=== PATIENT | female | born 1950 | race Two or more races ===

== ENCOUNTER 2019-03-01 01:55 | Emergency (ER) | payer MEDICARE, BC ==
[~2019-03-01] VITALS: Ht 157.5 cm; Wt 71.7 kg
[2019-03-01 02:39] LABS: Basophils # (auto) 0.1 uL; Basophils % (auto) 1.2 % (0.0-2.0); Eosinophils # (auto) 0.1 uL; Eosinophils % (auto) 1.3 % (0.0-7.0); Hematocrit 41.1 % (36.0-46.0); Hemoglobin 14.2 g/dL (12.2-16.2); Lymphocytes # (auto) 1.4 uL; Lymphocytes % (auto) 31.7 % (10.0-50.0); Mean Corpuscular Hemoglobin 30.1 pg (28.0-32.0); Mean Corpuscular Hgb Conc. 34.6 g/dL (32.0-36.0); Mean Corpuscular Volume 87.2 fL (80.0-100.0); Monocytes # (auto) 0.6 uL; Monocytes % (auto) 13.3 % (0.0-12.0); Neutrophils # (auto) 2.3 uL; Neutrophils % (auto) 52.5 % (37.0-80.0); Platelet Count (auto) 190 10^3/uL (140-450); Red Blood Cells 4.71 10^6/uL (4.0-5.20); Red Cell Distribution Width 13.3 % (11.8-14.3); White Blood Cell 4.4 10^3/uL (4.4-10.8)
[2019-03-01 03:03] LABS: Albumin 3.6 g/dL (3.4-5.0); Calcium 9.2 mg/dL (8.5-10.1); Potassium 3.7 mmol/L (3.5-5.1)
[2019-03-01 03:06] LABS: Bilirubin, Total 1.1 mg/dL (0.2-1.0); Total Protein 7.1 g/dL (6.4-8.2)
[2019-03-01 08:41] LABS: Urine Bacteria FEW /hpf (None Seen); Urine Blood Negative /uL (Negative); Urine Mucus FEW (None Seen); Urine Specific Gravity 1.018 (1.001-1.035); Urine WBC 1 /hpf (0 - 5)
[2019-03-01 09:34] VITALS: BP 133/81
== END 2019-03-01 09:39 | disposition home or self-care (01) ==
LOC: EDBD 02:00 → ER 02:00
DX: R42 Dizziness and giddiness (principal); I10 Essential (primary) hypertension; Z88.8 Allergy status to other drugs, medicaments and biological substances; Z88.2 Allergy status to sulfonamides
CPT/HCPCS: 36415; 80053; 81001; 85025; 93005

== ENCOUNTER → 2020-10-12 | Outpatient (CLI) | payer MEDICARE, BC | END | disposition home or self-care (01) | LOC: XYW 11:15 | DX: S83.411A Sprain of medial collateral ligament of right knee, initial encounter (principal); M71.21 Synovial cyst of popliteal space [Baker], right knee; M25.561 Pain in right knee; X58.XXXA Exposure to other specified factors, initial encounter; Y93.89 Activity, other specified; Y92.89 Other specified places as the place of occurrence of the external cause; Y99.8 Other external cause status | CPT/HCPCS: 73721 ==

== ENCOUNTER → 2020-12-05 | Outpatient (CLI) | payer MEDICARE, BC | END | disposition home or self-care (01) | LOC: LAB 11:24 | PROVIDERS: ATTEND Nurse Practitioner Family | DX: N39.0 Urinary tract infection, site not specified (principal) | CPT/HCPCS: 87086 ==

== ENCOUNTER → 2021-01-15 | Outpatient (CLI) | payer MEDICARE, BC | END | disposition home or self-care (01) | LOC: LAB 09:08 | PROVIDERS: ATTEND Internal Medicine Pulmonary Disease | DX: D86.9 Sarcoidosis, unspecified (principal); R91.1 Solitary pulmonary nodule | CPT/HCPCS: 36415; 82565; 84520 ==

== ENCOUNTER 2022-01-11 07:49 | Emergency (ER) | payer MEDICARE, BC ==
[~2022-01-11] VITALS: Ht 167.6 cm; Wt 59.0 kg
[2022-01-11 07:57] VITALS: BP 172/73
[2022-01-11 08:42] LABS: Basophils # (auto) 0.1 10 ^3/uL (0-0.2); Basophils % (auto) 0.9 % (0.0-2.0); Eosinophils # (auto) 0 10 ^3/uL (0-0.8); Eosinophils % (auto) 0.7 % (0.0-7.0); Hematocrit 42.9 % (36.0-46.0); Hemoglobin 14.2 g/dL (12.2-16.2); Lymphocytes # (auto) 1.4 10 ^3/uL (0.4-5.4); Lymphocytes % (auto) 20.3 % (10.0-50.0); Mean Corpuscular Hemoglobin 28.8 pg (28.0-32.0); Mean Corpuscular Hgb Conc. 33.1 g/dL (32.0-36.0); Monocytes # (auto) 0.7 10 ^3/uL (0-1.3); Monocytes % (auto) 9.7 % (0.0-12.0); Neutrophils # (auto) 4.6 10 ^3/uL (1.6-8.6); Neutrophils % (auto) 68.4 % (37.0-80.0); Nucleated Red Blood Cells % 0.1 %; Red Blood Cells 4.92 10^6/uL (4.0-5.20); Red Cell Distribution Width 13.3 % (11.8-14.3); White Blood Cell 6.7 10^3/uL (4.4-10.8)
[2022-01-11 09:01] LABS: Albumin 3.8 g/dL (3.4-5.0); Calcium 9.7 mg/dL (8.5-10.1); Potassium 3.6 mmol/L (3.5-5.1)
[2022-01-11 09:05] LABS: BUN/Creatinine Ratio 28.1; Bilirubin, Total 1.1 mg/dL (0.2-1.0); Total Protein 8.1 g/dL (6.4-8.2)
[2022-01-11] MEDS ORDERED: IOHEXOL 300 MG/ML 100ML BOTTLE IJ ONE (09:30)
[2022-01-11] MEDS ORDERED: cloNIDine HCL 0.1 MG TAB PO ONE (09:30)
[2022-01-11 12:26] LABS: Urine Bacteria MANY /hpf (None Seen); Urine Blood Negative /uL (Negative); Urine Hyaline Cast MOD /lpf (0 - 2); Urine Mucus FEW (None Seen); Urine Specific Gravity 1.018 (1.001-1.035); Urine WBC 8 /hpf (0 - 5)
== END 2022-01-11 13:59 | disposition left against medical advice (07) ==
LOC: ER 07:49
DX: R42 Dizziness and giddiness (principal); I10 Essential (primary) hypertension; E03.9 Hypothyroidism, unspecified; Z90.710 Acquired absence of both cervix and uterus; Z90.89 Acquired absence of other organs
CPT/HCPCS: 36415; 70450; 71045; 80053; 81001; 83735; 83880; 84443; 84484; 85025; 93005

== ENCOUNTER → 2022-01-20 | Outpatient (CLI) | payer MEDICARE, BC | END | disposition home or self-care (01) | LOC: LAB 11:43 | PROVIDERS: ATTEND Nurse Practitioner Family | DX: N39.0 Urinary tract infection, site not specified (principal) | CPT/HCPCS: 87086; 87088; 87186 ==

== ENCOUNTER 2022-02-20 15:51 | Emergency (ER) | payer MEDICARE, BC ==
[~2022-02-20] VITALS: Ht 162.6 cm; Wt 63.0 kg
[2022-02-20 18:24] LABS: Basophils # (auto) 0 10 ^3/uL (0-0.2); Basophils % (auto) 0.7 % (0.0-2.0); Eosinophils # (auto) 0 10 ^3/uL (0-0.8); Eosinophils % (auto) 0.8 % (0.0-7.0); Hematocrit 43.5 % (36.0-46.0); Mean Corpuscular Hemoglobin 28.3 pg (28.0-32.0); Mean Corpuscular Hgb Conc. 32.3 g/dL (32.0-36.0); Mean Corpuscular Volume 87.5 fL (80.0-100.0); Monocytes # (auto) 0.5 10 ^3/uL (0-1.3); Monocytes % (auto) 9.4 % (0.0-12.0); Neutrophils # (auto) 4.2 10 ^3/uL (1.6-8.6); Neutrophils % (auto) 72.1 % (37.0-80.0); Red Blood Cells 4.96 10^6/uL (4.0-5.20); White Blood Cell 5.9 10^3/uL (4.4-10.8)
[2022-02-20 18:36] LABS: Albumin 3.7 g/dL (3.4-5.0); BUN/Creatinine Ratio 31.6; Calcium 9.5 mg/dL (8.5-10.1); Potassium 3.7 mmol/L (3.5-5.1)
[2022-02-20 18:39] LABS: Bilirubin, Total 1.4 mg/dL (0.2-1.0); Total Protein 7.5 g/dL (6.4-8.2)
[2022-02-20] MEDS ORDERED: MECLIZINE HCL 25 MG TAB PO ONE (18:45)
[2022-02-20 19:35] VITALS: BP 160/78
== END 2022-02-20 19:40 | disposition home or self-care (01) ==
LOC: EDBD 15:51 → ER 15:51
DX: R42 Dizziness and giddiness (principal); I10 Essential (primary) hypertension; E03.9 Hypothyroidism, unspecified; Z90.710 Acquired absence of both cervix and uterus; Z90.89 Acquired absence of other organs; Z88.6 Allergy status to analgesic agent; Z88.2 Allergy status to sulfonamides
CPT/HCPCS: 36415; 80053; 85025; 93005

== ENCOUNTER → 2022-03-11 | Outpatient (CLI) | payer MEDICARE, BC ==
[2022-03-11 12:24] LABS: Basophils # (auto) 0 10 ^3/uL (0-0.2); Basophils % (auto) 0.7 % (0.0-2.0); Eosinophils # (auto) 0.1 10 ^3/uL (0-0.8); Eosinophils % (auto) 1.1 % (0.0-7.0); Hematocrit 44.6 % (36.0-46.0); Hemoglobin 14.8 g/dL (12.2-16.2); Lymphocytes # (auto) 1.2 10 ^3/uL (0.4-5.4); Lymphocytes % (auto) 19.5 % (10.0-50.0); Mean Corpuscular Hemoglobin 29.1 pg (28.0-32.0); Mean Corpuscular Hgb Conc. 33.1 g/dL (32.0-36.0); Monocytes # (auto) 0.6 10 ^3/uL (0-1.3); Monocytes % (auto) 9.1 % (0.0-12.0); Neutrophils # (auto) 4.2 10 ^3/uL (1.6-8.6); Neutrophils % (auto) 69.6 % (37.0-80.0); Nucleated Red Blood Cells % 0.1 %; Red Blood Cells 5.07 10^6/uL (4.0-5.20); Red Cell Distribution Width 13.9 % (11.8-14.3)
[2022-03-11 12:46] LABS: Albumin 3.8 g/dL (3.4-5.0); Potassium 3.9 mmol/L (3.5-5.1)
[2022-03-11 12:53] LABS: BUN/Creatinine Ratio 27.5; Bilirubin, Total 1.2 mg/dL (0.2-1.0); Total Protein 7.6 g/dL (6.4-8.2)
== END | disposition home or self-care (01) ==
LOC: LAB 11:44
PROVIDERS: ATTEND Nurse Practitioner Family
DX: I10 Essential (primary) hypertension (principal); E03.9 Hypothyroidism, unspecified; F41.9 Anxiety disorder, unspecified; Z00.00 Encounter for general adult medical examination without abnormal findings
CPT/HCPCS: 36415; 80053; 80061; 84443; 85025

== ENCOUNTER → 2023-10-21 | Outpatient (CLI) | payer MEDICARE, BC ==
[2023-10-21 14:35] LABS: Basophils # (auto) 0.1 10 ^3/uL (0-0.2); Basophils % (auto) 0.8 % (0.0-2.0); Eosinophils # (auto) 0 10 ^3/uL (0-0.8); Eosinophils % (auto) 0.6 % (0.0-7.0); Hematocrit 44.7 % (36.0-46.0); Hemoglobin 14.9 g/dL (12.2-16.2); Lymphocytes # (auto) 1.8 10 ^3/uL (0.4-5.4); Lymphocytes % (auto) 25.5 % (10.0-50.0); Mean Corpuscular Hemoglobin 29.9 pg (28.0-32.0); Mean Corpuscular Hgb Conc. 33.4 g/dL (32.0-36.0); Mean Corpuscular Volume 89.7 fL (80.0-100.0); Monocytes # (auto) 0.7 10 ^3/uL (0-1.3); Monocytes % (auto) 9.6 % (0.0-12.0); Neutrophils # (auto) 4.6 10 ^3/uL (1.6-8.6); Neutrophils % (auto) 63.5 % (37.0-80.0); Nucleated Red Blood Cells % 0.2 %; Red Blood Cells 4.98 10^6/uL (4.0-5.20); Red Cell Distribution Width 13.6 % (11.8-14.3); White Blood Cell 7.2 10^3/uL (4.4-10.8)
[2023-10-21 15:29] LABS: Anion Gap 11 (5-15); Calcium 10.4 mg/dL (8.5-10.1); Carbon Dioxide 24 mmol/L (20-30); Chloride 105 mmol/L (98-107); Sodium 140 mmol/L (136-145)
[2023-10-21 15:35] LABS: BUN/Creatinine Ratio 31.6 (10.0-20.0); Blood Urea Nitrogen 18 mg/dL (9-23); Glucose 103 mg/dL (74-106); Triglycerides 154 mg/dL (< 150)
[2023-10-21 15:36] LABS: LDL Cholesterol 117 mg/dL (< 100)
[2023-10-21 15:37] LABS: Cholesterol 208 mg/dL (< 200); HDL Cholesterol 70 mg/dL (40-59)
[2023-10-22 07:11] LABS: Urine Bacteria None Seen /hpf (None Seen)
[2023-10-22 07:29] LABS: Urine Blood Negative /uL (Negative); Urine Clarity Clear (Clear); Urine Color Light-Yellow (Yellow); Urine Hyaline Cast FEW /lpf (0 - 2); Urine Mucus FEW (None Seen); Urine Protein, UAD Negative (Negative); Urine Specific Gravity 1.015 (1.001-1.035); Urine Urobilinogen Normal (Negative); Urine WBC 5 /hpf (0 - 5)
== END | disposition home or self-care (01) ==
LOC: LAB 14:11
PROVIDERS: ATTEND Internal Medicine
DX: I10 Essential (primary) hypertension (principal); E04.1 Nontoxic single thyroid nodule; D86.9 Sarcoidosis, unspecified; N39.0 Urinary tract infection, site not specified; R91.1 Solitary pulmonary nodule; J44.1 Chronic obstructive pulmonary disease with (acute) exacerbation; E55.9 Vitamin D deficiency, unspecified
CPT/HCPCS: 36415; 80048; 80061; 81001; 82306; 82607; 84443; 85025

== ENCOUNTER 2024-06-01 01:14 | Inpatient (IN) | payer MEDICARE, BC ==
[~2024-06-01] VITALS: Ht 157.5 cm; Wt 50.3 kg
[~2024-06-01 01:14] MED LIST: ESCI5TAB PO; LACT10SO3 PO; OXCA600T3 PO
--- NOTE | 2024-06-01 01:35 | ED.PDOC ---
History of Present Illness HPI Comments 73 y/o F, with a Hx of anxiety, HTN, thyroid disease s/p thyroidectomy, sarcoidosis, and malnutrition, is BIBA for c/o shortness of breath and elevated heart rate, today. Patient endorses on awakening from sleep at rest, due to her shortness or breath, and noticing her heart rate being elevated more than usual baseline rate at a value of >100. Patient was reported to have a Hx of Xanex use and not taking it prior to EMS arrival. Patient denies having any chest pain, cough, fever, chills, or other associated symptoms at this time. Time Seen by MD: 01:20 Primary Care Provider: GIAN Reviewed Notes: Nurses Notes, Machining Technician Notes, Medications, Allergies Allergies: Coded Allergies: Aspirin (Verified Allergy, Unknown, 03/01/19) Sulfa Antibiotics (Verified Allergy, Unknown, 03/01/19) Information Source: Patient, Emergency Med Personnel Mode of Arrival: EMS Severity: Moderate Timing: Hours Duration: Minutes Prehospital treatment: 12 Lead EKG, Dredge Deckhand Associated signs and symptoms Associated shortness for breath Past Medical History PAST MEDICAL HISTORY: Anxiety, HTN, Thyroid Past Medical History (Other): sarcoidosis, malnutrition Surgical History: Hysterectomy, Thyroidectomy [employer] History: Denies all [employer] Hx Family History Family History (Other): [place] Social History Smoker: Non-Smoker Alcohol: Denies ETOH Use, Sober Drugs: Denies Drug Use Lives In: Home Constitutional: denies: chills, diaphoresis, fatigue, fever, malaise, sweats, weakness, others EENTM: denies: blurred vision, double vision, ear bleeding, ear discharge, ear drainage, ear pain, ear ringing, eye pain, eye redness, hearing loss, mouth pain, mouth swelling, nasal discharge, nose bleeding, nose congestion, nose pain, photophobia, tearing, throat pain, throat swelling, voice changes, others Respiratory: reports: shortness of breath; denies: cough, hemoptysis, orthopnea, SOB at rest, SOB with excertion, stridor, wheezing, others Cardiovascular: reports: others (abnormal heart rate ); denies: chest pain, dizzy spells, diaphoresis, Dyspnea on exertion, edema, irregular heart beat, left arm pain, lightheadedness, palpitations, PND, syncope Gastrointestinal: denies: abdomen distended, abdominal pain, blood streaked bowels, constipated, diarrhea, dysphagia, difficulty swallowing, hematemesis, melena, nausea, poor appetite, poor fluid intake, rectal bleeding, rectal pain, vomiting, others Genitourinary: denies: abnormal vagina bleeding, burning, dyspareunia, dysuria, flank pain, frequency, hematuria, incontinence, pain, , vagina discharge, urgency, others Neurological: denies: dizziness, fainting, headache, left sided numbness, left sided weakness, numbness, paresthesia, pre-existing deficit, right sided numbness, right sided weakness, seizure, speech problems, tingling, tremors, weakness, others Musculoskeletal: denies: back pain, gout, joint pain, joint swelling, muscle pain, muscle stiffness, neck pain, others Integumetry: denies: bruises, change in color, change in hair/nails, dryness, laceration, lesions, lumps, rash, wounds, others Allergic/Immunocompromised: denies: Difficulty Healing, Frequent Infections, Hives, Itching, others Hematologic/Lymphatic: denies: anemia, blood clots, easy bleeding, easy bruising, swollen glands, others Endocrine: denies: excessive hunger, excessive sweating, excessive thirst, excessive urination, flushing, intolerance to cold, intolerance to heat, unexplained weight gain, unexplained weight loss, others Psychiatric: denies: anxiety, bipolar disorder, depression, hopeless, panic disorder, schizophrenia, sleepless, suicidal, others All Other Systems: Reviewed and Negative Physical Exam General Appearance: Moderate Distress, Thin HEENT: Normal ENT Inspection, Pharynx Normal, TMs Normal Neck: Full Range of Motion, Non-Tender, Normal, Normal Inspection Respiratory: Chest Non-Tender, Lungs Clear, No Accessory Muscle Use, No Respiratory Distress, Normal Breath Sounds Cardiovascular: No Edema, No JVD, No Murmur, No Gallop, Tachycardia Breast Exam: Deferred Gastrointestinal: No Organomegaly, Non Tender, No Pulsatile Mass, Normal Bowel Sounds, Soft Genitalia: Deferred Pelvic: Deferred Rectal: Deferred Extremities: No calf tenderness, Normal capillary refill, Normal inspection, Normal range of motion, Non-tender, No pedal edema Musculoskeletal : Apperance: Normal Neurologic: Alert, medical office professional instructor II-XII nml as Tested, Motor Weakness, Normal Affect, Normal Mood, No Sensory Deficits Cerebellar Function: Normal Reflexes: Normal Skin: Dry, Normal Color, Warm Lymphatic: No Adenopathy Was a procedure done? Was a procedure done?: No EKG EKG : Pulse Rate (adult): 101 [place]: Normal Cardiac Rhythm: NSR Block: None ST: Nonsp Differential Dx Considerations may include: PNA, Covid19, URI, viral syndrome, PE, [place], ACS, anxiety, malnutrition X-Ray, Labs, Meds, VS Vital Signs Date Time Temp Pulse Resp B/P (MAP) Pulse Ox O2 Delivery O2 Flow Rate FiO2 06/01/24 01:21 99.3 101 16 155/103 (120) 97 Lab Test 06/01/24 02:29 06/01/24 01:32 Range/Units Troponin I High Sensitivity Pending 3 L </=34 ng/L White Blood Count 5.6 4.4-10.8 10^3/uL Red Blood Count 4.63 4.0-5.20 10^6/uL Hemoglobin 14.2 12.2-16.2 g/dL Hematocrit 42.0 36.0-46.0 % Mean Corpuscular Volume 90.7 80.0-100.0 fL Mean Corpuscular Hemoglobin 30.7 28.0-32.0 pg Mean Corpuscular Hemoglobin Concent 33.9 32.0-36.0 g/dL Red Cell Distribution Width 14.0 11.8-14.3 % Platelet Count 159 140-450 10^3/uL Mean Platelet Volume 8.5 6.9-10.8 fL Neutrophils (%) (Auto) 69.7 37.0-80.0 % Lymphocytes (%) (Auto) 19.9 10.0-50.0 % Monocytes (%) (Auto) 9.0 0.0-12.0 % Eosinophils (%) (Auto) 0.8 0.0-7.0 % Basophils (%) (Auto) 0.6 0.0-2.0 % Neutrophils # (Auto) 3.9 1.6-8.6 10 ^3/uL Lymphocytes # (Auto) 1.1 0.4-5.4 10 ^3/uL Monocytes # (Auto) 0.5 0-1.3 10 ^3/uL Eosinophils # (Auto) 0 0-0.8 10 ^3/uL Basophils # (Auto) 0 0-0.2 10 ^3/uL Nucleated Red Blood Cells 0.1 % Sodium Level 143 136-145 mmol/L Potassium Level 3.9 3.5-5.1 mmol/L Chloride Level 111 H 98-107 mmol/L Carbon Dioxide Level 23 20-31 mmol/L Anion Gap 9 5-15 Blood Urea Nitrogen 15 9-23 mg/dL Creatinine 0.50 L 0.550-1.02 mg/dL Glomerular Filtration Rate Calc 98 >90 mL/min BUN/Creatinine Ratio 30.0 H 10.0-20.0 Serum Glucose 107 H 74-106 mg/dL Calcium Level 10.4 8.7-10.4 mg/dL PROCEDURE(s): CXRP - CHEST PORTABLE IMPRESSION: No acute cardiopulmonary disease. Stable bilateral hilar opacities which are unchanged since 2021. IV Hep-Lock was established Images Reviewed?: Images reviewed and evaluated by me Time of 1ST Reevaluation: 01:50 Reevaluation 1ST: Unchanged Patient Education/Counseling: Diagnosis, Treatment, Prognosis Family Education/Counseling: No Family Present Departure 1 Departure Time of Disposition: 03:08 Impression: Primary Impression: Generalized weakness Additional Impression: Acute chest pain Disposition: ADMITTED INPATIENT Admit to: Tele Condition: Fair Critical Care Note Critical Care Time?: No Stability Stability form required: Yes Unstable for transfer: Telemetry monitoring (Telemetry monitoring required), ED Physician Assesment (Clinical assesment) Heart Score Heart Score: Heart Score Response (Comments) Value History Slightly Suspicious 0 EKG Normal 0 Age >65 2 Risk Factors 1 or 2 risk factors 1 Troponin Normal limit 0 Total 3 I personally scribed for MONICA CARRILLO MD ([email or web address]) on 06/01/24 at 01:35. Electronically submitted by Maico Stewart ([email or web address]). I personally scribed for MONICA CARRILLO MD ([email or web address]) on 06/01/24 at 02:48. Electronically submitted by Maico Stewart ([email or web address]). MONICA CARRILLO MD Jun 01, 2024 01:35
--- NOTE | 2024-06-01 01:58 | DVH ---
CHEST RADIOGRAPH Indication: sob Technique: Single frontal view of the chest was obtained Comparison: CHEST PORTABLE on DOS: 01/11/22, CXRP on DOS: 01/11/22, CHEST PORTABLE on DOS: 08/23/21 FINDINGS: Lines and Tubes: None Lungs: No focal consolidation. Pleura: No effusion. No pneumothorax. Cardiomediastinal contours: Unremarkable Bones: No acute osseous abnormality. IMPRESSION: No acute cardiopulmonary disease. Stable bilateral hilar opacities which are unchanged since 2021.
[2024-06-01 02:15] LABS: Chloride 111 mmol/L (98-107); Potassium 3.9 mmol/L (3.5-5.1); Sodium 143 mmol/L (136-145)
[2024-06-01 02:16] LABS: Anion Gap 9 (5-15); Calcium 10.4 mg/dL (8.7-10.4); Carbon Dioxide 23 mmol/L (20-31)
[2024-06-01 02:21] LABS: Blood Urea Nitrogen 15 mg/dL (9-23); Glucose 107 mg/dL (74-106)
[2024-06-01 02:36] LABS: Basophils # (auto) 0 10 ^3/uL (0-0.2); Basophils % (auto) 0.6 % (0.0-2.0); Eosinophils # (auto) 0 10 ^3/uL (0-0.8); Eosinophils % (auto) 0.8 % (0.0-7.0); Hemoglobin 14.2 g/dL (12.2-16.2); Lymphocytes # (auto) 1.1 10 ^3/uL (0.4-5.4); Lymphocytes % (auto) 19.9 % (10.0-50.0); Mean Corpuscular Hemoglobin 30.7 pg (28.0-32.0); Mean Corpuscular Hgb Conc. 33.9 g/dL (32.0-36.0); Mean Corpuscular Volume 90.7 fL (80.0-100.0); Monocytes # (auto) 0.5 10 ^3/uL (0-1.3); Neutrophils # (auto) 3.9 10 ^3/uL (1.6-8.6); Neutrophils % (auto) 69.7 % (37.0-80.0); Nucleated Red Blood Cells % 0.1 %; Platelet Count (auto) 159 10^3/uL (140-450); Red Blood Cells 4.63 10^6/uL (4.0-5.20); White Blood Cell 5.6 10^3/uL (4.4-10.8)
[2024-06-01] MEDS: ALPRAZolam 0.5 MG TAB PO ONE ×2 (04:52→17:51)
[2024-06-01 08:00] VITALS: PULSE 85; RESP 14; O2SAT 97
[2024-06-01] MEDS ORDERED: ALPR0.254 PO (09:10)
[2024-06-01] MEDS ORDERED: LOSA-534 PO (09:10)
--- NOTE | 2024-06-01 09:18 | DVHHP2 ---
History of Present Illness Reason for Visit: Shortness of breath and elevated heart rate History of Present Illness Betty Rodriguez is a 73YO F with pmHx of anxiety, HTN, sarcoidosis, malnutrition, and hypothyroidism who presents to the ED for SOB, elevated heart rate and palpitations. Upon examination patient reports that her elevated heart rate awoke her from sleep and when she had checked it, it was 113. Patient reports that she takes losartan 50mg BID and aspirin 81mg prn that was prescribed by her machine taper. She follows outpatient with Dr. Laughlin (cardiology). She states her anxiety is better with the xanax that was prescribed in the ED. Patient also reports she takes xanax 0.25mg daily for anxiety. Patient reports that she is also going to see a crop quantitative geneticist for her skin lesion on the right side of her nose. She had prior lesions removed that were on her face and arms, unknown date. Patient also reports that she had a partial thyroidectomy when she was 7 years old. Patient also reports that she takes lactulose daily as prescribed to help with BMs and states her norm is every 3 days. Patient reports using a FWW with no recent injury/falls. She denies dizziness, lightheadedness, fever, chills, chest pain, N/V/D, and weakness. Spoke with daughter at bedside in holding area and discussed treatment plan with her. Daughter is open to allow patient to decide if she wants to continue with the hospital admission or leave AMA. Educated and reiterated the need for admission. Patient is extremely anxious and discussing with plans with daughter. Daughter is requesting a colonoscopy be done while admitted for this stay. She states her mom usually has a BM everyday but hasn't had one for 3 days. Patient has an outpatient colonoscopy appointment on July 04, [address] Saez. Per daughter, the patient had a CT A/P done in April 2024 and was informed there was inflammation. Per patient and daughter, patient is not allergic to aspirin. Will continue to monitor the patient and added stool softeners to her regimen. Cardiovascular: HTN Psych: Anxiety Past Medical History Sarcoidosis Malnutrition Past Surgical History: Hysterectomy, Other (Thyroidectomy) Family History: Other ([place]) Smoke: No ALCOHOL: none Drugs: None Lives: with Family Domestic Violence: Neg Review of Systems Constitutional: No: Fever, Chills, Sweats, Weakness, Malaise, Other Eyes: No: Pain, Vision change, Conjunctivae inflammation, Eyelid inflammation, Other, Redness ENT: No: Ear pain, Ear discharge, Nose pain, Nose discharge, Nose congestion, Mouth pain, Mouth swelling, Throat pain, Throat swelling, Other Respiratory: Shortness of breath; No: Cough, Dry, SOB with excertion, Wheezing, Hemoptysis, Pleuritic Pain, Sputum, Wheezing, Other Cardiovascular: Palpitations; No: Chest Pain, Orthopnea, Paroxysmal Noc. Dyspnea, Edema, Lt Headedness, Other Gastrointestinal: Constipation; No: Nausea, Vomiting, Abdominal Pain, Diarrhea, Melena, Hematochezia, Other Genitourinary: No Dysuria, No Frequency, No Incontinence, No Hematuria, No Retention, No Other Musculoskeletal: No: other, neck pain, shoulder pain, arm pain, back pain, hand pain, leg pain, foot pain Skin: Lesions (right side of nose); No: Rash, Jaundice, Bruising, Other Neurological: No: Weakness, Numbness, Incoordination, Change in speech, Confusion, Seizures, Other Allergies: Coded Allergies: Sulfa Antibiotics (Verified Allergy, Unknown, 03/01/19) Exam Vital Signs Vital Signs Date Time Temp Pulse Resp B/P (MAP) Pulse Ox O2 Delivery O2 Flow Rate FiO2 06/01/24 06:00 80 16 166/76 (106) 97 06/01/24 04:30 98.4 98.4 General Appearance: Alert, Oriented X3, Cooperative, No acute distress HEENT: PERRLA, EOMI Respiratory: Clear to auscultation, Normal air movement Cardiovascular: Regular rate, Normal S1, Normal S2 Abdominal: Normal bowel sounds, Soft Extremities: No clubbing, No cyanosis, No edema, Normal pulses, No tenderness/swelling Neuro: Normal gait, Normal speech, Strength at 5/5 X4 ext, Normal tone, Sensation intact Psych/Mental Status: Mental status NL, Mood NL Labs/Xrays Labs Test 06/01/24 02:29 06/01/24 01:32 Range/Units Troponin I High Sensitivity 4 </=34 ng/L White Blood Count 5.6 4.4-10.8 10^3/uL Red Blood Count 4.63 4.0-5.20 10^6/uL Hemoglobin 14.2 12.2-16.2 g/dL Hematocrit 42.0 36.0-46.0 % Mean Corpuscular Volume 90.7 80.0-100.0 fL Mean Corpuscular Hemoglobin 30.7 28.0-32.0 pg Mean Corpuscular Hemoglobin Concent 33.9 32.0-36.0 g/dL Red Cell Distribution Width 14.0 11.8-14.3 % Platelet Count 159 140-450 10^3/uL Mean Platelet Volume 8.5 6.9-10.8 fL Neutrophils (%) (Auto) 69.7 37.0-80.0 % Lymphocytes (%) (Auto) 19.9 10.0-50.0 % Monocytes (%) (Auto) 9.0 0.0-12.0 % Eosinophils (%) (Auto) 0.8 0.0-7.0 % Basophils (%) (Auto) 0.6 0.0-2.0 % Neutrophils # (Auto) 3.9 1.6-8.6 10 ^3/uL Lymphocytes # (Auto) 1.1 0.4-5.4 10 ^3/uL Monocytes # (Auto) 0.5 0-1.3 10 ^3/uL Eosinophils # (Auto) 0 0-0.8 10 ^3/uL Basophils # (Auto) 0 0-0.2 10 ^3/uL Nucleated Red Blood Cells 0.1 % Sodium Level 143 136-145 mmol/L Potassium Level 3.9 3.5-5.1 mmol/L Chloride Level 111 H 98-107 mmol/L Carbon Dioxide Level 23 20-31 mmol/L Anion Gap 9 5-15 Blood Urea Nitrogen 15 9-23 mg/dL Creatinine 0.50 L 0.550-1.02 mg/dL Glomerular Filtration Rate Calc 98 >90 mL/min BUN/Creatinine Ratio 30.0 H 10.0-20.0 Serum Glucose 107 H 74-106 mg/dL Calcium Level 10.4 8.7-10.4 mg/dL CHEST RADIOGRAPH FINDINGS: Lines and Tubes: None Lungs: No focal consolidation. Pleura: No effusion. No pneumothorax. Cardiomediastinal contours: Unremarkable Bones: No acute osseous abnormality. IMPRESSION: No acute cardiopulmonary disease. Stable bilateral hilar opacities which are unchanged since 2021. Assessment/Plan Assessment/Plan Assessment: Anxiety Palpitations HTN Hx of Sarcoidosis Malnutrition Thyroid disease s/p thyroidectomy Plan: Admit to tele Diet as tolerated Antihypertensives BP management and rate control Anti-anxiolytics Pain management AM labs CT A/P Discussed plan of care with patient, patient's daughter and nurse Plan discussed with: Patient, Daughter Date of Service: Jun 01, 2024 Billing Provider: DEUCE ROJAS Common Visit Codes: [id number] INP/OBS CARE (MOD) DEUCE ROJAS Jun 01, 2024 09:18
[2024-06-01] MEDS ORDERED: DOCUSATE SOD 100 MG CAP PO PRN (09:30)
[2024-06-01] MEDS ORDERED: MORPHINE SULFATE INJ 2 MG/ml SYRG IV PRN (09:30)
[2024-06-01] MEDS ORDERED: ACETAMINOPHEN 325 MG TAB PO PRN (09:30)
[2024-06-01] MEDS ORDERED: HYDROcodone-ACET 5/325MG TAB PO PRN (09:30)
[2024-06-01] MEDS ORDERED: ONDANSETRON HCL 4 MG/2 ML VIAL IV PRN (09:30)
[2024-06-01] MEDS: SODIUM CHLOR 0.9% PF (SALINE LOCK) 10ML VIAL/SYR IV SCH (14:00)
[2024-06-01 15:25] VITALS: BP 143/78; PULSE 82; RESP 18; TEMP 98.3; O2SAT 95
[2024-06-01 15:53] VITALS: PULSE 78; RESP 16
[2024-06-01] MEDS ORDERED: ASPI1TAB20 PO (16:58)
[2024-06-01] MEDS ORDERED: CHOL20007 PO (16:58)
[2024-06-01 17:00] VITALS: BP 142/77; PULSE 83; RESP 18; TEMP 98.4; O2SAT 96
[2024-06-01] MEDS: SODIUM CHLORIDE 0.9% 1,000 ML IV SCH (17:51)
--- NOTE | 2024-06-01 19:30 | ECG ---
[facility] Test Date: 2024-06-01 Test Time: 03:19:55 Pat Name: CASEY FRIAS Department: ER Room: 0240T B Gender: F Doping Supervisor: TANI : [id number] Requested By: MONICA CARRILLO Order Number: [id number] Reading MD: Pedro Luis Nelson Measurements Intervals Atkinson Rate: 86 P: 9 MN: 145 QRS: -49 QRSD: 88 T: 56 QT: 381 QTc: 456 Interpretive Statements Sinus rhythm Ventricular bigeminy Left anterior fascicular block Abnormal R-wave progression, early transition LVH by voltage Electronically Signed On 06-03-2024 17:32:05 PST by Pedro Luis Nelson Please click the below link to view image of tracing.
[2024-06-01 20:00] VITALS: PULSE 71; PULSE 78; RESP 18; O2SAT 94
[2024-06-01 21:00] VITALS: BP 120/63; PULSE 78; RESP 18; TEMP 97.6; O2SAT 94
[2024-06-02] VITALS (10 sets, daily range): BP systolic 112–160; BP diastolic 67–101; PULSE 80–103; RESP 17–19; TEMP 97.8–98.5; O2SAT 94–96
[2024-06-02 05:42] LABS: Basophils # (auto) 0 10 ^3/uL (0-0.2); Basophils % (auto) 0.9 % (0.0-2.0); Eosinophils # (auto) 0.1 10 ^3/uL (0-0.8); Eosinophils % (auto) 2.1 % (0.0-7.0); Hematocrit 37.8 % (36.0-46.0); Hemoglobin 12.9 g/dL (12.2-16.2); Lymphocytes # (auto) 0.9 10 ^3/uL (0.4-5.4); Lymphocytes % (auto) 23.2 % (10.0-50.0); Mean Corpuscular Hemoglobin 30.6 pg (28.0-32.0); Mean Corpuscular Hgb Conc. 34.1 g/dL (32.0-36.0); Mean Corpuscular Volume 89.8 fL (80.0-100.0); Monocytes # (auto) 0.5 10 ^3/uL (0-1.3); Monocytes % (auto) 13.3 % (0.0-12.0); Neutrophils # (auto) 2.3 10 ^3/uL (1.6-8.6); Neutrophils % (auto) 60.5 % (37.0-80.0); Nucleated Red Blood Cells % 0.1 %; Platelet Count (auto) 150 10^3/uL (140-450); Red Blood Cells 4.21 10^6/uL (4.0-5.20); White Blood Cell 3.7 10^3/uL (4.4-10.8)
[2024-06-02 05:57] LABS: Alanine Aminotransferase 16 U/L (7-40); Albumin 3.4 g/dL (3.2-4.8); Alkaline Phosphatase 65 U/L (46-116); Anion Gap 8 (5-15); Aspartate Aminotransferase 16 U/L (13-40); Bilirubin, Total 1.4 mg/dL (0.2-1.0); Blood Urea Nitrogen 21 mg/dL (9-23); Calcium 9.8 mg/dL (8.7-10.4); Carbon Dioxide 24 mmol/L (20-31); Chloride 113 mmol/L (98-107); Glucose 88 mg/dL (74-106); Sodium 145 mmol/L (136-145); Total Protein 5.7 g/dL (5.7-8.2)
--- NOTE | 2024-06-02 08:23 | DVH ---
CT ABDOMEN AND PELVIS WITHOUT CONTRAST CLINICAL HISTORY: CONSTIPATION TECHNIQUE: Multiple contiguous axial images of the abdomen and pelvis without intravenous contrast. The images were reformatted degenerate coronal and sagittal reconstructions. All CT scans at this medical facility are performed using dose modulation techniques as appropriate t o a performed exam including the following:Automated exposure control was utilized; adjustment of the MA and/or KV according to patient size; and use of iterative reconstruction technique. Radiation Dose Information: CT Dose: CTDI volume is 5.07 mGy. Dose-length product is 253.96 mGy*cm Comparison: None. FINDINGS: Evaluation of the abdomen and pelvis is limited without intravenous contrast. There is a 2.0 cm right upper pole renal cyst. There is no evidence of nephrolithiasis or hydronephro sis. The liver, gallbladder, pancreas, adrenal glands, and spleen appear within normal limits. There is no gross evidence of abdominal lymphadenopathy. There is no free fluid or free air. The stomach grossly appears within normal limits. The small and large bowel loops demonstrate normal caliber. Air intermixed with stool is seen within the colon. The abdominal aorta and IVC appear within normal limits. The bladder appears unremarkable. The uterus is surgically absent.. There is no gross evidence of a pelvic mass. There is no free fluid collection. There is eventration of the right hemidiaphragm. There is scarring versus atelectasis in the right l annie base. There is no acute osseous abnormality. There are multilevel degenerative changes in the lumbar spine. IMPRESSION: 1. There is no acute process in the abdomen and pelvis. 2. 2.0 cm right upper pole renal cysts. 3. Hysterectomy. HS:Y
[2024-06-02] MEDS: hydrALAZINE HCL 20 MG/ML VL IV PRN (10:40)
[2024-06-02] MEDS: ASPirin 81 mg TAB PO SCH (10:40)
--- NOTE | 2024-06-02 11:36 | DVHPN2 ---
Subjective The patient seen and examined at bedside. No pain today. Reviewed: Care Plan, H&P, Labs, Medications, Previous Orders, Radiology Changes from previous H/P or p: No Changes Eyes: No Pain, No Vision change, No Conjunctivae inflammation, No Eyelid inflammation, No Other, No Redness ENT: No Ear pain, No Ear discharge, No Nose pain, No Nose discharge, No Nose congestion, No Mouth pain, No Mouth swelling, No Throat pain, No Throat swelling, No Other Cardiovascular: No Chest Pain; Palpitations; No Orthopnea, No Paroxysmal Noc. Dyspnea, No Edema, No Lt Headedness, No Other Respiratory: No Cough, No Dry; Shortness of breath; No SOB with excertion, No Wheezing, No Hemoptysis, No Pleuritic Pain, No Sputum, No Other Gastrointestinal: No Nausea, No Vomiting, No Abdominal Pain, No Diarrhea; C onstipation; No Melena, No Hematochezia, No Other Genitourinary: No Dysuria, No Frequency, No Incontinence, No Hematuria, No Retention, No Other Musculoskeletal: No other, No neck pain, No shoulder pain, No arm pain, No back pain, No hand pain, No leg pain, No foot pain Skin: No Rash; Lesions (right side of nose); No Jaundice, No Bruising, No Other Objective Vitals Vital Signs Date Time Temp Pulse Resp B/P (MAP) Pulse Ox O2 Delivery O2 Flow Rate FiO2 06/02/24 10:40 150/81 06/02/24 09:02 98.5 81 19 95 98.5 06/01/24 20:00 Room Air* 0 21 Intake/Output Intake and Output 06/02/24 07:00 Intake Total 350 ml Output Total 200 ml Balance 150 ml Intake Oral 320 ml IV Total 30 ml Output Urine Total 200 ml # Voids 1 General Appearance: Alert, Oriented X3, Cooperative, No acute distress HEENT: Atraumatic, PERRLA, EOMI, Mucous membr. moist/pink Neck: Supple Cardiovascular: Regular rate, Normal S1, Normal S2, No murmurs, Gallops, Rubs Abdomen: Normal bowel sounds, Soft, No tenderness Neuro: Cranial nerves 3-12 NL Psych/Mental Status: Mental status NL Medications Current Medications Medications Dose Ordered Sig/Isael Route Start Time Stop Time Status Last Admin Dose Admin Hydralazine HCl 10 mg Q6HP PRN IV 06/01/24 08:45 06/02/24 10:40 10 MG Sodium Chloride 10 ml Q8HR IV 06/01/24 14:00 06/02/24 06:08 10 ML Acetaminophen/ Hydrocodone Bitart 1 tab Q4HP PRN PO 06/01/24 09:30 Ondansetron HCl 4 mg Q4HP PRN IV 06/01/24 09:30 Docusate Sodium 100 mg BIDPRN PRN PO 06/01/24 09:30 Acetaminophen 650 mg Q6HP PRN PO 06/01/24 09:30 Morphine Sulfate 2 mg Q4HPRN PRN IV 06/01/24 09:30 Aspirin 81 mg DAILY PO 06/02/24 10:00 06/02/24 10:40 81 MG Sodium Chloride 1,000 ml @ 60 mls/hr [id number] IV 06/01/24 13:15 06/02/24 06:08 60 MLS/HR Alprazolam 0.25 mg Q12HP PRN PO 06/01/24 18:15 Laboratory Results Laboratory Tests 06/02/24 05:13 Chemistry Test 06/02/24 05:13 Albumin 3.4 g/dL (3.2-4.8) Calcium Level 9.8 mg/dL (8.7-10.4) Total Protein 5.7 g/dL (5.7-8.2) LFT Test 06/02/24 05:13 Alanine Aminotransferase (ALT) 16 U/L (7-40) Alkaline Phosphatase 65 U/L (46-116) Aspartate Amino Transferase (AST) 16 U/L (13-40) Total Bilirubin 1.4 mg/dL (0.2-1.0) H Labs and/or images reviewed: Labs reviewed by me Assessment/Plan Assessment/Plan Anxiety Palpitations HTN Hx of Sarcoidosis Malnutrition Thyroid disease s/p thyroidectomy Continuing current management. Continuing with nebulizer. Continuing with anti anxiety medication. Encouraged the patient to be out of bed and ambulate. Discharge planning. Plan discussed with: Patient Date of Service: Jun 02, 2024 Billing Provider: FIORELLA PEREZ MD Common Visit Codes: [id number] INP/OBS CARE(HIGH) FIORELLA PEREZ MD Jun 02, 2024 11:36
[2024-06-02] MEDS: ALPRAZolam 0.25 MG TAB PO PRN (23:59)
[2024-06-03 01:00] VITALS: BP 112/64; PULSE 96; RESP 19; TEMP 98.3; O2SAT 94
[2024-06-03 05:00] VITALS: BP 146/75; PULSE 113; RESP 18; TEMP 98.3; O2SAT 95
[2024-06-03 08:00] VITALS: PULSE 108; PULSE 92; RESP 18; O2SAT 94
[2024-06-03 09:00] VITALS: BP 140/77; PULSE 92; RESP 19; TEMP 98.5; O2SAT 96
--- NOTE | 2024-06-03 10:53 | DVHDS2 ---
Discharge Summary Date of Admission Jun 01, 2024 at 09:19 Date of Discharge: Jun 03, 2024 Admitting Diagnosis Anxiety Palpitations HTN Hx of Sarcoidosis Malnutrition Thyroid disease s/p thyroidectomy Labs/Diagnostic Data: Laboratory Results Test 06/02/24 05:13 White Blood Count 3.7 10^3/uL (4.4-10.8) Red Blood Count 4.21 10^6/uL (4.0-5.20) Hemoglobin 12.9 g/dL (12.2-16.2) Hematocrit 37.8 % (36.0-46.0) Mean Corpuscular Volume 89.8 fL (80.0-100.0) Mean Corpuscular Hemoglobin 30.6 pg (28.0-32.0) Mean Corpuscular Hemoglobin Concent 34.1 g/dL (32.0-36.0) Red Cell Distribution Width 14.0 % (11.8-14.3) Platelet Count 150 10^3/uL (140-450) Mean Platelet Volume 8.1 fL (6.9-10.8) Neutrophils (%) (Auto) 60.5 % (37.0-80.0) Lymphocytes (%) (Auto) 23.2 % (10.0-50.0) Monocytes (%) (Auto) 13.3 % (0.0-12.0) Eosinophils (%) (Auto) 2.1 % (0.0-7.0) Basophils (%) (Auto) 0.9 % (0.0-2.0) Neutrophils # (Auto) 2.3 10 ^3/uL (1.6-8.6) Lymphocytes # (Auto) 0.9 10 ^3/uL (0.4-5.4) Monocytes # (Auto) 0.5 10 ^3/uL (0-1.3) Eosinophils # (Auto) 0.1 10 ^3/uL (0-0.8) Basophils # (Auto) 0 10 ^3/uL (0-0.2) Nucleated Red Blood Cells 0.1 % Sodium Level 145 mmol/L (136-145) Potassium Level 4.0 mmol/L (3.5-5.1) Chloride Level 113 mmol/L (98-107) Carbon Dioxide Level 24 mmol/L (20-31) Anion Gap 8 (5-15) Blood Urea Nitrogen 21 mg/dL (9-23) Creatinine 0.42 mg/dL (0.550-1.02) Glomerular Filtration Rate Calc 102 mL/min (>90) BUN/Creatinine Ratio 50.0 (10.0-20.0) Serum Glucose 88 mg/dL (74-106) Calcium Level 9.8 mg/dL (8.7-10.4) Total Bilirubin 1.4 mg/dL (0.2-1.0) Aspartate Amino Transferase (AST) 16 U/L (13-40) Alanine Aminotransferase (ALT) 16 U/L (7-40) Alkaline Phosphatase 65 U/L (46-116) Troponin I High Sensitivity 6 ng/L (</=34) Total Protein 5.7 g/dL (5.7-8.2) Albumin 3.4 g/dL (3.2-4.8) Other Laboratory Tests 06/02/24 05:13 Brief Hx & Hospital Course: This is a 73 years old female with past medical history of anxiety, panic attack, hypertension, sarcoidosis, hypothyroidism, history of thyroidectomy, protein calorie malnutrition came to emergency department because shortness for breath, elevation of heart rate and heart palpitation. She said that her heart rate work her up when she sleep. She measured in his was 113. The patient said she takes losartan and aspirin with prior by her video editing intern, Dr. Laughlin. The patient apparently feels better after she received Xanax in emergency department. The patient continuing to do better in the hospital after she received antianxiety medication. The patient told me this is her norm when she had panic attack. Usually Xanax will calm her down. The patient workup in the hospital showed no acute coronary syndrome. Troponin level was negative x3, EKG is normal. I am going to discharge him home today. Advised her to follow up with Dr. Laughlin, her video editing intern per schedule. Follow up with her primary care physician 1-2 weeks. Patient may need help from psychotherapy, psychologist and psychiatrist as outpatient. Advised her to discuss with her primary care physician and get the referral to these service. Activity as tolerated. Diet per home diet. Physical exam: HEENT: Normocephalic atraumatic pupils equal react to light and accommodation. Extraocular muscles intact, conjunctiva pink, oropharynx moist, no thrush, no exudate. Lymphatic: No lymphadenopathy Cardiovascular exam: S1, S2 was heard. No murmurs, rubs, gallops Lung: Clear on auscultation bilaterally, no wheeze, rale, rhonchi. GI: Abdominal soft, nondistended, nontenderness, positive bowel sounds. Extremity: No crepitus, cyanosis, edema. Pedal pulses present bilateral. Full range of motion. Skin: Normal turgor, no rash. Psych: Alert, oriented x3. Neurology: No focal deficits, cranial nerve II to XII grossly intact. Condition at Discharge: Stable Final Diagnosis/Problems List Anxiety Palpitations Panic attack HTN Hx of Sarcoidosis Malnutrition Thyroid disease s/p thyroidectomy Discharge Disposition: Home Discharge Instruct/Medications Diet: Cardiac 2g Na,low cholest Activity: No Restrictions, As Tolerated Follow Up/Referral: pcp 1-2 weeks Medications: Resume home meds Discharge Statement: "Patient was advised to return to the ER or call 911 if any headaches, dizziness, shortness of breath, chest pain, abdominal pain, bleeding, fevers, or worsening of medical condition. Patient was counseled about treatment plan, medications, possible side effects, patientverbalized understanding. All questions were answered to the best of my ability. This discharge took greater then 30 minutes in planning, reviewing documentation, counseling the patient, and discussing with other team members." ASSESSMENT ASSESSMENT Assessment heart palpitation, panic attach Date of Service: Jun 03, 2024 Billing Provider: FIORELLA PEREZ MD Common Visit Codes: 92083-QEK/OBS DISCH DAY >30min FIORELLA PEREZ MD Jun 03, 2024 10:53
[2024-06-03 12:43] VITALS: BP 140/77; PULSE 92; RESP 19; TEMP 98.5; O2SAT 96
[2024-06-03 13:14] VITALS: BP 150/91; PULSE 91; RESP 19; TEMP 98.6; O2SAT 96
== END 2024-06-03 14:40 | disposition home or self-care (01) | DRG 309 ==
LOC: ER 01:14 → EDBD 01:14 → OVERFLOW 09:19 → TELE 12:19 → TELE-EAST 14:51
PROVIDERS: ATTEND Internal Medicine
DX: R00.2 Palpitations (principal); E44.1 Mild protein-calorie malnutrition; F41.0 Panic disorder [episodic paroxysmal anxiety]; I10 Essential (primary) hypertension; F41.9 Anxiety disorder, unspecified; E89.0 Postprocedural hypothyroidism; D86.9 Sarcoidosis, unspecified; Z88.6 Allergy status to analgesic agent; Z88.2 Allergy status to sulfonamides; Z90.710 Acquired absence of both cervix and uterus; Z82.49 Family history of ischemic heart disease and other diseases of the circulatory system; Z79.899 Other long term (current) drug therapy; Z68.20 Body mass index [BMI] 20.0-20.9, adult
CPT/HCPCS: 36415; 71045; 74176; 80048; 80053; 84484; 85025; 93005; G0378

== ENCOUNTER → 2024-07-04 | Day surgery (SDC) | payer MEDICARE, BC ==
[2024-06-29 13:46] LABS: Basophils # (auto) 0 10 ^3/uL (0-0.2); Basophils % (auto) 0.5 % (0.0-2.0); Eosinophils # (auto) 0 10 ^3/uL (0-0.8); Eosinophils % (auto) 0.3 % (0.0-7.0); Hematocrit 42.8 % (36.0-46.0); Hemoglobin 14.6 g/dL (12.2-16.2); Lymphocytes # (auto) 0.8 10 ^3/uL (0.4-5.4); Mean Corpuscular Hemoglobin 30.2 pg (28.0-32.0); Mean Corpuscular Hgb Conc. 34.2 g/dL (32.0-36.0); Mean Corpuscular Volume 88.3 fL (80.0-100.0); Monocytes # (auto) 0.6 10 ^3/uL (0-1.3); Monocytes % (auto) 10.6 % (0.0-12.0); Neutrophils % (auto) 73.6 % (37.0-80.0); Platelet Count (auto) 171 10^3/uL (140-450); Red Blood Cells 4.84 10^6/uL (4.0-5.20); Red Cell Distribution Width 13.8 % (11.8-14.3); White Blood Cell 5.5 10^3/uL (4.4-10.8)
[2024-06-29 14:01] LABS: INR 1.03 (0.9-1.15); Partial Thromboplastin Time 25.9 SEC (24.5-34.5); Prothrombin Time 10.9 sec (9.3-11.8)
[2024-06-29 14:37] LABS: Alanine Aminotransferase 12 U/L (7-40); Albumin 4.1 g/dL (3.2-4.8); Alkaline Phosphatase 73 U/L (46-116); Anion Gap 7 (5-15); Aspartate Aminotransferase 20 U/L (13-40); BUN/Creatinine Ratio 13.3 (10.0-20.0); Bilirubin, Total 0.9 mg/dL (0.2-1.0); Carbon Dioxide 25 mmol/L (20-31); Glucose 99 mg/dL (74-106); Potassium 3.6 mmol/L (3.5-5.1); Total Protein 6.9 g/dL (5.7-8.2)
[2024-06-29 14:39] LABS: Blood Urea Nitrogen 6 mg/dL (9-23); Calcium 10.4 mg/dL (8.7-10.4); Chloride 95 mmol/L (98-107); Sodium 127 mmol/L (136-145)
[~2024-07-04] VITALS: Ht 157.5 cm; Wt 48.5 kg
[~2024-07-04] MED LIST changes: +ALPR0.254 PO; +ASPI1TAB20 PO; +CHOL20007 PO; +LOSA-534 PO; +PROPOFOL 10 MG/ML 20 ML IV ONE; +ePHEDrine SULFATE 50 MG/ML AMP ONE; +fentaNYL CITRATE 100 MCG/2 ML VL ONE
[2024-07-04 11:26] VITALS: PULSE 67; RESP 16; TEMP 97.7; O2SAT 97
--- NOTE | 2024-07-04 11:47 | DVHOP2 ---
Operative Report DATE OF OPERATION: 07/04/24 PROCEDURE: Colonoscopy with snare polypectomy. PREOPERATIVE INDICATION: The patient is a 73 -year-old female undergoing colonoscopy for abnormal finding GI tract imaging POSTOPERATIVE DIAGNOSES: 1. Patient had a 1-1.5 cm benign-appearing sigmoid polyp that was seen and remov ed completely via snare polypectomy 2. There was a 3-4 mm benign-appearing cecal polyp that was seen and removed via snare polypectomy 3. Mild left colon diverticular disease ; somewhat limited study due to poor prep 4. Trace internal hemorrhoids otherwise normal examination up to the cecum ; after irrigation aspiration no other gross lesions were noted PROCEDURE PERFORMED BY: Danna Bejarano M.D. SCOPE: Olympus videocolonoscope. ASA CLASS: 3. PREOPERATIVE MEDICATIONS: Dr. Nimo Corley PROCEDURE IN DETAIL: After obtaining an informed consent, the patient was placed on left lateral decubitus position. She was then sedated with the above medications. A rectal examination was performed that was normal. The colonoscope was then passed through the anus into the rectosigmoid and through the descending, transverse, and ascending colon up to the cecum with visualization of the appendiceal orifice, base of the cecum and the ileocecal valve. The colonoscope was then withdrawn. In the base of the cecum there was a 3-4 mm benign-appearing polyp. This was removed by snare polypectomy and the specimens were retrieved. No masses were seen There was no colitis. Study was somewhat limited due to poor prep but careful irrigation aspiration was performed In the rectosigmoid colon there was a 1-1.5 cm benign-appearing polyp that was seen and removed by snare polypectomy and the specimen was retrieved Patient had mild to moderate left colon diverticular disease and on retroflexion trace internal hemorrhoids The patient tolerated the procedure well without difficulty. WITHDRAWAL TIME: 20 minutes QUALITY OF THE PREP: [place] Bowel Prep score: 7. COMPLICATIONS : None SPECIMENS: Cecal polyp Sigmoid polyp DISPOSITION: Stable D/C to home PLAN: 1. Repeat colonoscopy base on biopsy result likely in 3-5 years 2. Resume GI soft diet advance as tolerated 3. Increase fluid and fiber intake 4. Outpatient follow up with me in 4-6 weeks to review results and discuss further management DANNA BEJARANO MD Jul 04, 2024 11:47
[2024-07-04 11:56] VITALS: BP 149/59; PULSE 92; RESP 17; O2SAT 95
== END | disposition home or self-care (01) ==
LOC: GI 08:56
PROVIDERS: ATTEND Internal Medicine Gastroenterology
DX: R19.8 Other specified symptoms and signs involving the digestive system and abdomen (principal); D12.5 Benign neoplasm of sigmoid colon; D12.0 Benign neoplasm of cecum; K57.30 Diverticulosis of large intestine without perforation or abscess without bleeding; K64.8 Other hemorrhoids; I10 Essential (primary) hypertension; I48.91 Unspecified atrial fibrillation; I25.2 Old myocardial infarction; I25.10 Atherosclerotic heart disease of native coronary artery without angina pectoris; F41.9 Anxiety disorder, unspecified; Z88.0 Allergy status to penicillin; Z98.890 Other specified postprocedural states; Z88.2 Allergy status to sulfonamides; Z79.899 Other long term (current) drug therapy; Z90.89 Acquired absence of other organs; Z79.82 Long term (current) use of aspirin; Z82.49 Family history of ischemic heart disease and other diseases of the circulatory system
CPT/HCPCS: 36415; 45385; 80053; 85025; 85610; 85730; 88305; J2704; J3010

== ENCOUNTER 2025-01-03 08:19 | Outpatient (CLI) | payer MEDICARE, BC ==
[~2025-01-03 08:19] MED LIST changes: -PROPOFOL 10 MG/ML 20 ML IV ONE; -ePHEDrine SULFATE 50 MG/ML AMP ONE; -fentaNYL CITRATE 100 MCG/2 ML VL ONE
--- NOTE | 2025-01-03 12:15 | DVH ---
US US GUIDANCE FOR NEEDLE PLACEME, HISTORY: NODULE PROCEDURE: An informed consent was obtained. Limited localization ultrasound of the thyroid gland was obtained. The left neck base was prepped with chlorhexidine which was allowed to dry and draped in t he usual sterile fashion. Timeout was performed. The skin and soft tissues were infiltrated with 1% X ylocaine. With ultrasound guidance, multiple core biopsies were obtained of the left mid and lower th yroid nodules and placed into formalin. The neck was cleaned and a sterile band-aid applied. The spec imens were sent to pathology for analysis. No immediate complication was identified. FINDINGS: Solid TR4 thyroid nodules (2) on the left. Limited ultrasound of the thyroid during the bio psy demonstrates biopsy needle within nodules. IMPRESSION: Ultrasound guided core biopsy of left thyroid nodules (2).
== END 2025-01-03 17:00 | disposition home or self-care (01) ==
LOC: XYW 08:19
PROVIDERS: ATTEND Internal Medicine
DX: E04.2 Nontoxic multinodular goiter (principal); E07.89 Other specified disorders of thyroid; F41.8 Other specified anxiety disorders; Z79.82 Long term (current) use of aspirin; Z79.899 Other long term (current) drug therapy; Z82.49 Family history of ischemic heart disease and other diseases of the circulatory system
CPT/HCPCS: 60100; 76536; 76942

== ENCOUNTER 2025-02-02 09:40 | Outpatient (CLI) | payer MEDICARE, BC ==
[2025-02-02 10:28] LABS: Hematocrit 45.6 % (36.0-46.0); Hemoglobin 15.3 g/dL (12.2-16.2); INR 0.99 (0.9-1.15); Mean Corpuscular Hemoglobin 29.8 pg (28.0-32.0); Mean Corpuscular Volume 88.7 fL (80.0-100.0); Nucleated Red Blood Cells % 0.0 %; Partial Thromboplastin Time 25.8 SEC (24.5-34.5); Prothrombin Time 10.5 sec (9.3-11.8)
[2025-02-02 10:44] LABS: Alanine Aminotransferase 20 U/L (7-40); Albumin 4.6 g/dL (3.2-4.8); Alkaline Phosphatase 96 U/L (46-116); Anion Gap 12 (5-15); BUN/Creatinine Ratio 25.0 (10.0-20.0); Blood Urea Nitrogen 13 mg/dL (9-23); Carbon Dioxide 26 mmol/L (20-31); Chloride 103 mmol/L (98-107); Potassium 3.9 mmol/L (3.5-5.1); Sodium 141 mmol/L (136-145); Total Protein 7.6 g/dL (5.7-8.2)
[2025-02-02 10:52] LABS: Bilirubin, Total 1.2 mg/dL (0.2-1.0); Calcium 11.2 mg/dL (8.7-10.4); Glucose 106 mg/dL (74-106)
[2025-02-02 11:56] LABS: Urine Protein, UAD TRACE (Negative)
== END 2025-02-02 17:00 | disposition home or self-care (01) ==
LOC: LAB 09:40
PROVIDERS: ATTEND Internal Medicine
DX: Z01.812 Encounter for preprocedural laboratory examination (principal); N39.0 Urinary tract infection, site not specified; E83.52 Hypercalcemia; E87.1 Hypo-osmolality and hyponatremia; E07.89 Other specified disorders of thyroid; Z98.890 Other specified postprocedural states
CPT/HCPCS: 36415; 80053; 81001; 82306; 83970; 85025; 85610; 85730